=== PATIENT | female | born 1990 | race American Indian/Alaskan Native ===

== ENCOUNTER 2017-11-14 09:21 | Emergency (ER) | payer OTHER ==
[2017-11-14 09:21] VITALS: BMI 23.2
[2017-11-14 09:41] VITALS: BP 111/73; PULSE 79; RESP 16; TEMP 97.8; O2SAT 99
--- NOTE | 2017-11-14 09:47 | C.PDOC ---
History Of Present Illness 27 y/o female presents to the ER complaining of non-productive cough, runny nose , and sore throat which has been present for 2 to 3 days. Patient states that she has been using Theraflu. Patient reports that she has multiple sick contacts at work because many of her co-workers have cold symptoms. Time Seen by Provider: 11/14/17 09:36 Chief Complaint (Nursing): Cough, Cold, Congestion History Per: Patient History/Exam Limitations: no limitations Onset/Duration Of Symptoms: Days Current Symptoms Are (Timing): Still Present Severity: Moderate Past Medical History Reviewed: Historical Data, Nursing Documentation, Vital Signs Vital Signs: Last Vital Signs Temp 97.8 F 11/14/17 09:39 Pulse 79 11/14/17 09:39 Resp 16 11/14/17 09:39 BP 111/73 11/14/17 09:39 Pulse Ox 99 11/14/17 11:21 - Medical History PMH: No Chronic Diseases Surgical History: Carotid Endarterectomy (2010) Family History: States: No Known Family Hx - Social History Hx Alcohol Use: Yes Hx Substance Use: No - Immunization History Hx Tetanus Toxoid Vaccination: No Hx Influenza Vaccination: No Hx Pneumococcal Vaccination: No Review Of Systems Except As Marked, All Systems Reviewed And Found Negative. Constitutional: Negative for: Fever, Chills ENT: Positive for: Nose Discharge, Throat Pain Respiratory: Positive for: Cough Gastrointestinal: Negative for: Nausea, Vomiting, Diarrhea Physical Exam - Physical Exam Appears: Non-toxic, No Acute Distress, Other (comfortable) Skin: Normal Color, Warm Head: Atraumatic, Normacephalic Eye(s): bilateral: Normal Inspection, PERRL Ear(s): Bilateral: Normal Nose: Discharge (rhinorrhea) Throat: Erythema (mild pharyngeal erythema), No Exudate, Other (no tonsillar swelling) Neck: Supple Chest: Symmetrical Cardiovascular: Rhythm Regular Respiratory: Normal Breath Sounds, No Accessory Muscle Use, No Rales, No Rhonchi , No Wheezing Extremity: Normal ROM Neurological/Psych: Oriented x3, Normal Speech, Normal Cognition, Normal Motor, Normal Sensation ED Course And Treatment O2 Sat by Pulse Oximetry: 99 (RA) Pulse Ox Interpretation: Normal Progress Note: Patient has been informed that she has a cold. Patient has been discharged with prescriptions for Tessalon Perles, Naproxen,and Sudafed. Disposition Counseled Patient/Family Regarding: Diagnosis, Need For Followup, Rx Given - Disposition Referrals: [facility] [Outside] Disposition: HOME/ ROUTINE Disposition Time: 09:50 Condition: STABLE Additional Instructions: FOLLOW UP WITH YOUR DOCTOR IN 1-2 DAYS DRINK PLENTY OF FLUIDS USE MEDICATIONS DIRECTED RETURN TO ER IF SYMPTOMS WORSEN Prescriptions: Benzonatate [Tessalon Perles] 100 mg PO BID PRN #15 sgl PRN Reason: Cough Naproxen 375 mg PO BID PRN #20 tablet PRN Reason: pain Phenol/Glycerin [Chloraseptic Max Tesuque] 1 spray MM Q6 PRN #1 spray PRN Reason: THROAT PAIN Pseudoephedrine HCl [Sudafed] 30 mg PO Q6 PRN #15 tablet PRN Reason: Nasal Congestion Instructions: Upper Respiratory Infection (ED), Viral Syndrome (ED) Forms: [employer] (Palauan) Print Language: ETHIOPIAN - POA Present On Arrival: None - Clinical Impression Clinical Impression: Viral disease, Upper respiratory infection - Scribe Statement The provider has reviewed the documentation as recorded by the Lili Ibarra Provider Attestation: All medical record entries made by the Juanibjose were at my direction and personally dictated by me. I have reviewed the chart and agree that the record accurately reflects my personal performance of the history, physical exam, medical decision making, and the department course for this patient. I have also personally directed, reviewed, and agree with the discharge instructions and disposition.
== END 2017-11-14 09:55 | disposition home or self-care (01) ==
LOC: C.ER 09:21
DX: J06.9 Acute upper respiratory infection, unspecified (principal)

== ENCOUNTER 2018-12-10 06:31 | Day surgery (SDC) | payer OTHER ==
[2018-12-03 13:49] VITALS: BMI 23.6
[2018-12-10 07:07] VITALS: O2SAT 100
[2018-12-10] MEDS ORDERED: Bupivacaine HCl 0.25% PF (10 ml) Inj ONE (07:45)
[2018-12-10] MEDS ORDERED: ceFOXitin IV 1 gm/100 ml in NS 2 GM/200 ML BAG ONE (07:46)
[2018-12-10] MEDS ORDERED: Propofol 10 mg/ml Inj (20 ML) ONE (07:46)
[2018-12-10] MEDS ORDERED: Midazolam 2 MG/2 ML VIAL ONE (07:46)
[2018-12-10] MEDS ORDERED: Lidocaine Hydrochloride 5 ML INJ ONE (08:17)
[2018-12-10] MEDS ORDERED: Neostigmine 1:1000 (1 mg/ml) Inj ONE (08:54)
[2018-12-10] MEDS ORDERED: HYDROmorphone 0.5 mg/0.5 ml ISec IVP PRN (09:11)
[2018-12-10] MEDS ORDERED: Lactated Ringer's 500 ML IV ONE (10:08)
[2018-12-10 11:27] VITALS: RESP 16; TEMP 97.5
--- NOTE | 2018-12-10 12:36 | OP ---
PROCEDURE DATE: 12/10/2018 PREOPERATIVE DIAGNOSES: Multiparity desires sterilization, ovarian cyst. POSTOPERATIVE DIAGNOSES: Multiparity desires sterilization plus bilateral ovarian cysts. FINDINGS: Bilateral ovarian cyst, 4 cm in diameter, unilocular on the right and left side. Normal tubes. Normal uterus. Scant endocervical and endometrial curettings. PROCEDURE: Laparoscopy, dilation and curettage of the uterus, bilateral salpingectomy rather than bilateral ovarian cystectomy. SURGEON: Jes Martínez MD STUDIO OWNER: Jack Ramsey MD TYPE OF ANESTHESIA: General. ESTIMATED BLOOD LOSS: 1 mL. COMPLICATIONS: Nil. DESCRIPTION OF PROCEDURE: After the risks, benefits, and alternatives of the planned procedures, including but not limited to infection, hemorrhage, deep vein thrombosis, atelectasis, pneumonia, pulmonary embolism, damage to the bladder, damage to the ureter, renal insufficiency, renal failure, wound infection, wound dehiscence, incisional hernia, keloid formation, damage to the large and small intestines, damage to the inferior vena cava and aorta requiring extensive repair, anesthesia complications, electrolyte imbalance, possibility of , fluid overload, cerebral edema, air embolism, and other complications that were discussed, but are not listed above, have been explained to the patient and all her questions answered, informed consent was obtained. The patient was taken to the operating room in a stable condition. Under suitable level of general anesthesia, she was prepped and draped in a sterile fashion after having been placed in dorsal lithotomy position. Bladder was emptied through straight catheterization. A Perry catheter was inserted into the uterus. Examination under anesthesia revealed a normal size uterus, anteverted with bilateral adnexal fullness. A weighted speculum was inserted into the vagina. The anterior lip of the cervix was grasped using a single-toothed tenaculum and endocervical curettage was performed and scant tissue was obtained. The uterus was sounded at 7 cm. The cervix was dilated with #18 Hanks dilator. An endometrial curettage was performed and scant tissue was obtained. A HUMI catheter was inserted into the cervix and insufflated into place. Through an umbilical vertical incision, a Veress needle was inserted and pneumoperitoneum of 3 L was created. The Veress needle was removed and replaced by a 5-mm trocar sleeve. Trocar was removed and replaced by a laparoscope which as noted above. A 5-mm puncture site was made 3 fingerbreadths above the pubic symphysis through which a 5-mm trocar and sleeve were inserted. Trocar was removed and replaced by Endo Aristeo scissors. A 5-mm puncture site was made in the right iliac fossa through which a 5-mm trocar and sleeve were inserted. Trocar was removed and replaced by a grasper. An incision was made over the right and left ovarian cyst. The cyst lining was then removed and submitted both the right and left side separately for pathology. The excision site was then fulgurated with good hemostasis using bipolar cautery. LigaSure was used to resect both the right and left fallopian tubes by resecting them in their entirety starting at the cornua and resecting the mesosalpinx completely on both the right and left side. The tubes were submitted separately for pathology. At the end of the procedure, peritoneal cavity was irrigated using copious amounts of saline. The saline was evacuated. The suprapubic and right iliac fossa sleeves were removed under laparoscopic guidance. Abdomen was deflated with carbon dioxide. The umbilical sleeve was removed under laparoscopic guidance. The skin incisions were then closed using 4-0 Monocryl. Estimated blood loss for the procedure was less than 1 mL. Pad, needle, and instrument counts were correct x2. There were no complications. Jes Martínez MD
[2018-12-10 12:58] VITALS: BP 113/74; PULSE 79
== END 2018-12-10 12:20 | disposition home or self-care (01) ==
LOC: C.SDS 06:31
PROVIDERS: ATTEND Obstetrics & Gynecology Reproductive Endocrinology
DX: N83.01 Follicular cyst of right ovary (principal); N83.202 Unspecified ovarian cyst, left side; Z30.2 Encounter for sterilization; N39.3 Stress incontinence (female) (male); N87.9 Dysplasia of cervix uteri, unspecified
CPT/HCPCS: 58120; 58661; 58662; 88302; 88304; 88305; J1170; J2250; J2405; J2704; J2710; J3010; J7120

== ENCOUNTER 2019-02-07 22:02 | Emergency (ER) | payer MEDICAID, OTHER ==
[2019-02-07 22:02] VITALS: BMI 23.6
[2019-02-07 22:12] VITALS: O2SAT 100
[2019-02-07] MEDS ORDERED: Sodium Chloride 0.9% 1,000 ML IV ONE (22:58)
--- NOTE | 2019-02-07 23:10 | C.PDOC ---
History Of Present Illness 28 year old female presents with LLQ pain since last week that worsened today with vomiting. Patient is A3 with 4 children at home due to twins. She has not taken anything for pain. Denies constipation. Patient had tubal ligation 11/2018. Time Seen by Provider: 02/07/19 22:50 Chief Complaint (Nursing): Abdominal Pain History Per: Patient History/Exam Limitations: no limitations Onset/Duration Of Symptoms: Days Current Symptoms Are (Timing): Still Present Quality Of Discomfort: Unable To Describe Associated Symptoms: Vomiting. denies: Constipation Exacerbating Factors: None Alleviating Factors: None Recent travel outside of the [place]: No Past Medical History Reviewed: Historical Data, Nursing Documentation, Vital Signs Vital Signs: Last Vital Signs Temp 98.5 F 02/07/19 22:08 Pulse 83 02/07/19 22:08 Resp 16 02/07/19 22:08 BP 117/74 02/07/19 22:08 Pulse Ox 100 02/07/19 22:08 - Medical History PMH: Anemia (IRON DEFICENCY) Denies: Chronic Kidney Disease Surgical History: Family History: States: Unknown Family Hx - Social History Hx Alcohol Use: Yes Hx Substance Use: No - Immunization History Hx Tetanus Toxoid Vaccination: No Hx Influenza Vaccination: No Hx Pneumococcal Vaccination: No Review Of Systems Constitutional: Negative for: Fever, Chills Cardiovascular: Negative for: Chest Pain, Palpitations Respiratory: Negative for: Cough, Shortness of Breath Gastrointestinal: Positive for: Vomiting, Abdominal Pain Neurological: Negative for: Weakness, Numbness Physical Exam - Physical Exam Appears: Non-toxic, Other (thin petite black female. in moderate distess.) Skin: Normal Color, Warm Head: Atraumatic, Normacephalic Oral Mucosa: Moist Chest: Symmetrical Cardiovascular: Rhythm Regular Respiratory: Normal Breath Sounds, No Rales, No Rhonchi, No Wheezing Gastrointestinal/Abdominal: Soft, Tenderness (LLQ), No Guarding, No Rebound Back: No CVA Tenderness Neurological/Psych: Oriented x3, Normal Speech ED Course And Treatment - Laboratory Results Result Diagrams: 02/07/19 23:31 02/07/19 23:31 O2 Sat by Pulse Oximetry: 100 (Room air) Pulse Ox Interpretation: Normal Medical Decision Making Medical Decision Making: multiple prior evals for pelvic discomfort findings c/w mild UTI, ? ruptured ovarian cyst, and Pelvic Congestion Syndrome s/s resolved with Toradol IV in ED NSAIDS and PO Abx reviewed and educated. Disposition Doctor Will See Patient In The: Office Counseled Patient/Family Regarding: Studies Performed, Diagnosis - Disposition Disposition: HOME/ ROUTINE Disposition Time: 03:11 Condition: GOOD Forms: [facility] (Cymro) - Clinical Impression Clinical Impression: Pelvic pain - Scribe Statement The provider has reviewed the documentation as recorded by the Scribe Neo Yee All medical record entries made by the Juanibjose were at my direction and personally dictated by me. I have reviewed the chart and agree that the record accurately reflects my personal performance of the history, physical exam, medical decision making, and the department course for this patient. I have also personally directed, reviewed, and agree with the discharge instructions and disposition.
[2019-02-07 23:38] LABS: BASO % 0.2 % (0.0-2.0); EOS % 0.2 % (0.0-4.0); HCG,QUALITATIVE URINE NEGATIVE (NEGATIVE); HEMOGLOBIN 11.7 g/dL (11.0-16.0); LYMPH # 0.9 K/uL (1.0-4.3); LYMPH % 6.1 % (20.0-40.0); MEAN CELL VOLUME 88.5 fL (81.0-99.0); MEAN CORPUSCULAR HEMOGLOBIN 30.4 pg (27.0-31.0); MEAN CORPUSCULAR HGB CONC 34.3 g/dL (33.0-37.0); MEAN PLATELET VOLUME 8.5 fL (7.2-11.7); MONO # 0.7 K/uL (0.0-0.8); MONO % 4.7 % (0.0-10.0); NEUT # 12.9 K/uL (1.8-7.0); NEUT % 88.8 % (50.0-75.0); PLATELET COUNT 246 K/uL (130-400); RBC 3.84 Mil/uL (3.80-5.20); RED CELL DISTRIBUTION WIDTH 11.8 % (11.5-14.5); WHITE BLOOD COUNT 14.6 K/uL (4.8-10.8)
[2019-02-07 23:43] LABS: SQUAMOUS EPITHIAL 26 /hpf (0-5); URINE BACTERIA MANY (<OCC); URINE BILIRUBIN NEGATIVE (NEGATIVE); URINE BLOOD 2+ (NEGATIVE); URINE CLARITY Hazy (Clear); URINE COLOR Yellow (YELLOW); URINE GLUCOSE (UA) NORMAL (Normal); URINE LEUKOCYTE ESTERASE 1+ Leu/uL (Negative); URINE PROTEIN NEGATIVE (NEGATIVE); URINE UROBILINOGEN NORMAL mg/dL (0.2-1.0)
[2019-02-07 23:49] LABS: ALB/GLOB RATIO 1.4 (1.0-2.1); ALBUMIN 4.1 g/dL (3.5-5.0); ALT/SGPT 14 U/L (9-52); AST/SGOT 14 U/L (14-36); BLOOD UREA NITROGEN 12 mg/dL (7-17); CALCIUM 9.6 mg/dl (8.6-10.4); GFR NON-AFRICAN AMERICAN > 60; LIPASE 17 U/L (23-300)
[2019-02-07 23:54] LABS: BARBITURATES, UR NEGATIVE (NEGATIVE); BENZODIAZEPINES, UR NEGATIVE (NEGATIVE); OPIATES, UR NEGATIVE (NEGATIVE); PHENCYCLIDINE, UR NEGATIVE (NEGATIVE)
[2019-02-08] MEDS ORDERED: cefTRIAXone IV 1 gm in Dextros 50 ML IV ONE (00:09)
[2019-02-08] MEDS ORDERED: Iodixanol 320 MG/ML 100 ML BOTTLE IV ONE (00:22)
[2019-02-08 03:22] VITALS: BP 111/80; PULSE 91; RESP 16; TEMP 98.5
[2019-02-08 03:55] LABS: BANDS 1 % (0-2); EOSINOPHIL 1 % (0-4); LYMPHOCYTE 6 % (20-40); MONOCYTE 3 % (0-10); NEUTROPHIL 88 % (50-75); PLATELET ESTIMATE NORMAL (NORMAL); REACTIVE LYMPHOCYTES 1 % (0-0); TOTAL CELLS COUNTED 100
--- NOTE | 2019-02-08 08:53 | CT ---
Date of service: 02/08/2019 PROCEDURE: CT Abdomen and Pelvis with contrast HISTORY: L abd, ? pyelo COMPARISON: None available. TECHNIQUE: CT scan of the abdomen and pelvis was performed after administration of intravenous contrast. Oral contrast was not administered. Coronal and sagittal reformatted images were obtained. Contrast dose: Radiation dose: Total exam DLP = 287.44 mGy-cm. This CT exam was performed using one or more of the following dose reduction techniques: Automated exposure control, adjustment of the mA and/or kV according to patient size, and/or use of iterative reconstruction technique. FINDINGS: LOWER THORAX: The visualized lungs are clear. LIVER: Normal in size with homogeneous enhancement. No gross lesion or ductal dilatation. GALLBLADDER AND BILE DUCTS: Well distended. No calcified gallstones, wall thickening or pericholecystic fluid. PANCREAS: Normal in size with homogeneous enhancement. No gross lesion or ductal dilatation. SPLEEN: Normal in size and appearance. ADRENALS: No discrete nodule. KIDNEYS AND URETERS: Normal in size with homogeneous enhancement. No hydronephrosis. No solid mass. VASCULATURE: No aortic aneurysm. There are no aortic atherosclerotic calcifications or mural plaque present. BOWEL: Evaluation of the bowel is limited in the absence of oral contrast. There are fluid-filled mildly prominent small bowel loops. There is apparent mild circumferential mural thickening in the transverse and descending colon. No bowel wall thickening or obstruction. APPENDIX: Normal appendix. PERITONEUM: There is moderate amount of free fluid in bilateral adnexa. No free air. LYMPH NODES: No enlarged lymph nodes. BLADDER: Well distended and normal in appearance. REPRODUCTIVE: The uterus is normal in size. There are 2 cysts with enhancing rims in the left ovary measuring 2.7 x 1.8 cm and 2.4 x 1.5 cm. There are dilated venous collaterals in bilateral adnexa. BONES: No acute fracture. Within normal limits for the patient's age. OTHER FINDINGS: None. IMPRESSION: 1. Apparent mild circumferential mural thickening of the transverse and descending colon is nonspecific and could be related to underdistention however acute nonspecific infectious/inflammatory colitis is also a consideration. Clinical follow-up is advised. 2. Two rim enhancing cyst in the left ovary, the larger measures 2.7 x 1.8 cm. Moderate amount of free fluid in bilateral adnexa. Suspect pelvic congestion syndrome. 3. No CT evidence for acute pyelonephritis. A preliminary report was provided by [employer].
--- NOTE | 2019-02-08 09:53 | RAD ---
Date of service: 02/07/2019 PROCEDURE: Radiographs of the chest and abdomen (obstructive series) HISTORY: Abdominal pain COMPARISON: No prior. TECHNIQUE: AP radiograph of the chest, with upright and supine radiographs of the abdomen. 3 views obtained. FINDINGS: CHEST: Lungs: Clear. Cardiovascular: Normal size heart. No pulmonary vascular congestion. No aortic atherosclerotic calcification present Pleura: No pleural fluid. No pneumothorax. Other findings: None. ABDOMEN AND PELVIS: Bowel: There is moderate amount of stool in the colon. No evidence of mechanical obstruction. Free air: None. Bones: Unremarkable. Other findings: None. IMPRESSION: Constipation. No evidence for bowel obstruction. Clear lungs.
== END 2019-02-08 03:25 | disposition home or self-care (01) ==
LOC: C.ER 22:02
DX: R10.2 Pelvic and perineal pain (principal)
CPT/HCPCS: 74022; 74177; 80053; 80324; 80345; 80346; 80349; 80353; 80358; 80361; 81001; 83690; 83992; 84703; 85025; 96361; 96365; 96375; 99284; J0696; J1885; J7030; Q9967